=== PATIENT | male | born 1945 | race Caucasian/White ===

== ENCOUNTER 2024-06-07 14:16 | Emergency (ER) | payer OTHER ==
[~2024-06-07] VITALS: Ht 175.3 cm; Wt 80.6 kg
[2024-06-07 17:49] VITALS: BP 148/80
== END 2024-06-07 17:50 | disposition home or self-care (01) ==
LOC: ED 14:16
DX: J02.9 Acute pharyngitis, unspecified (principal); I11.0 Hypertensive heart disease with heart failure; I50.9 Heart failure, unspecified; J44.9 Chronic obstructive pulmonary disease, unspecified; I25.10 Atherosclerotic heart disease of native coronary artery without angina pectoris
CPT/HCPCS: 87651; 99283

== ENCOUNTER 2024-07-28 09:10 | Emergency (ER) | payer OTHER ==
[~2024-07-28] VITALS: Ht 175.3 cm; Wt 80.4 kg
[2024-07-28] MEDS ORDERED: FUROSEMIDE 40 MG/4 ML VIAL IV ONE (09:30)
[2024-07-28 09:39] LABS: BASOPHILS 1.3 % (0-2); HEMATOCRIT 44.6 % (35.0-50.0); HEMOGLOBIN 15.1 g/dL (12.0-18.0); LYMPHOCYTES 18.1 % (24-44); MCH 32.7 (27-36); MCHC 33.8 g/dl (30-36); MCV 96.6 fl (81-99); MONOCYTES 8.1 % (0-12); NEUTROPHILS 68.5 % (39-80); PLATELET COUNT 187 K/uL (140-440); RBC 4.61 M/ul (4.3-5.7); RDW 13.6 (10.5-15.0)
[2024-07-28 09:47] LABS: PARTIAL THROMBOPLASTIN TIME 28.5 Sec (22.9-41.3)
[2024-07-28 09:51] LABS: INR 1.15 (0.80-1.30)
[2024-07-28 09:58] LABS: ALBUMIN 3.2 g/dL (3.4-5.0); ALBUMIN/GLOBULIN RATIO 0.89 (1.1-2.4); BILIRUBIN, TOTAL 0.4 ng/dL (0.2-1.0); BUN/CREATININE RATIO 23.12 (6.0-28.6); CREATININE, SERUM 1.73 mg/dL (0.70-1.30); MAGNESIUM 2.1 mg/dL (1.8-2.4); PROTEIN, TOTAL 6.8 g/dL (6.4-8.2)
[2024-07-28 10:20] LABS: INFLUENZA B NAA NEGATIVE (NEGATIVE); RESPIRATORY SYNCYTIAL VIR NAA NEGATIVE (NEGATIVE)
[2024-07-28 12:21] VITALS: BP 150/84
--- NOTE | 2024-07-29 18:14 | EKG ---
[facility] [address] [facility] [place] [address] Signed Ventricular-paced rhythm Abnormal ECG No previous ECGs available Confirmed by Wellington Barrett MD ([id number]) on 07/29/2024 6:14:21 PM Electronically Signed By: WELLINGTON BARRETT MD 07/29/241813 PATIENT NAME: NBA OLSEN Electrocardiogram DATE OF : 43 PHYSICIAN: WELLINGTON BARRETT MD REPORT #: [id number] REPORT IS CONFIDENTIAL AND NOT TO BE RELEASED WITHOUT AUTHORIZATION
== END 2024-07-28 12:22 | disposition home or self-care (01) ==
LOC: ED 09:10
PROVIDERS: Emergency Medicine
DX: I11.0 Hypertensive heart disease with heart failure (principal); I50.9 Heart failure, unspecified; J44.9 Chronic obstructive pulmonary disease, unspecified; I48.91 Unspecified atrial fibrillation; I25.10 Atherosclerotic heart disease of native coronary artery without angina pectoris; Z85.46 Personal history of malignant neoplasm of prostate; Z95.0 Presence of cardiac pacemaker
CPT/HCPCS: 36415; 71045; 80053; 83735; 83880; 84484; 85025; 85379; 85610; 85730; 87502; 93005; 93010; 96374; 99285-25; J1940; U0002

== ENCOUNTER 2024-08-14 03:22 | Emergency (ER) | payer OTHER ==
[~2024-08-14] VITALS: Ht 175.3 cm; Wt 86.6 kg
[2024-08-14 03:55] LABS: BASOPHILS 0.5 % (0-2); EOSINOPHILS 3.5 % (0-6); HEMATOCRIT 40.3 % (35.0-50.0); HEMOGLOBIN 14.2 g/dL (12.0-18.0); MCH 33.8 (27-36); MCHC 35.2 g/dl (30-36); PLATELET COUNT 155 K/uL (140-440); RDW 13.7 (10.5-15.0)
[2024-08-14 04:10] LABS: ALBUMIN 3.4 g/dL (3.4-5.0); ALBUMIN/GLOBULIN RATIO 1.03 (1.1-2.4); ANION GAP 13.7 (7-21); BILIRUBIN, TOTAL 1.5 ng/dL (0.2-1.0); BUN/CREATININE RATIO 20.76 (6.0-28.6); CALCIUM 8.5 mg/dL (8.5-10.1); CREATININE, SERUM 1.83 mg/dL (0.70-1.30); POTASSIUM 3.7 mmol/L (3.5-5.1); PROTEIN, TOTAL 6.7 g/dL (6.4-8.2)
--- OUTSIDE RECORDS SUMMARY | 2024-08-14 04:54 | XMS ---
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 Sonia has no Care Guidelines for this patient. Nina VISIT COUNT (12 MO.) 3 [facility] J[address] TOTAL 4 NOTE: Visits indicate total known visits. ED/C VISIT TRACKING (12 MO.) [facility]24 [facility] [place] [facility] COMPLAINT: - DIFFICULTY BREATHING 07/28/2024 09:10 [facility] [place] TYPE: Emergency COMPLAINT: - SHORTNESS OF BREATH DIAGNOSES: - Atherosclerotic heart disease of [place] coronary artery without angina pectoris - Chronic obstructive pulmonary disease, unspecified - Heart failure, unspecified - Hypertensive heart disease with heart failure - Personal history of malignant neoplasm of prostate - Presence of cardiac pacemaker - Shortness of breath - Unspecified atrial fibrillation 06/07/2024 14:17 [facility] [place] TYPE: Emergency COMPLAINT: - SORE THROAT DIAGNOSES: - Acute pharyngitis, unspecified - Atherosclerotic heart disease of [place] coronary artery without angina pectoris - Chronic obstructive pulmonary disease, unspecified - Heart failure, unspecified - Hypertensive heart disease with heart failure 02/02/2024 07:22 [facility] TYPE: Emergency COMPLAINT: - CHEST PAIN DIAGNOSES: - Chronic obstructive pulmonary disease, unspecified - Heart failure, unspecified - Hypertensive heart disease with heart failure - terminal operations manager (current) use of anticoagulants - Other chest pain - Personal history of nicotine dependence - Presence of cardiac pacemaker - Unspecified atrial fibrillation - Ventricular premature depolarization INPATIENT VISIT TRACKING (12 MO.) 02/15/2024 21:40 [facility] TYPE: Inpatient COMPLAINT: - CHEST PAIN DIAGNOSES: - Acute kidney failure, unspecified - Chest pain, unspecified - Chronic obstructive pulmonary disease, unspecified - Elevated white blood cell count, unspecified - Essential (primary) hypertension - Malignant neoplasm of prostate - Presence of cardiac pacemaker - Unspecified atrial fibrillation - Unspecified diastolic (congestive) heart failure 08/23/2023 10:11 [facility] TYPE: Inpatient COMPLAINT: - SOB DIAGNOSES: - Acute on chronic diastolic (congestive) heart failure - Chronic atrial fibrillation, unspecified - Chronic obstructive pulmonary disease, unspecified - Contact with and (suspected) exposure to other hazardous, chiefly nonmedicinal, chemicals - Encounter for screening for COVID-19 - Essential (primary) hypertension - Heart failure, unspecified - Hypertensive heart disease with heart failure - [facility] (current) use of anticoagulants - Malignant neoplasm of prostate - Personal history of malignant neoplasm of prostate - Personal history of nicotine dependence - Presence of cardiac pacemaker - Psoriasis, unspecified - Pulmonary hypertension, unspecified - Unspecified atrial fibrillation [id number]
[2024-08-14] MEDS ORDERED: FUROSEMIDE 40 MG/4 ML VIAL IV ONE (06:00)
[2024-08-14 10:00] VITALS: BP 132/79
[2024-08-14] MEDS ORDERED: K-TAB ER20 MEQ PO (10:21)
[2024-08-14] MEDS ORDERED: FUROSEMIDE 40 MG TAB PO ONE (10:30)
[2024-08-14] MEDS ORDERED: POTASSIUM CHLORIDE 10 MEQ TABCR PO ONE (10:30)
--- NOTE | 2024-08-14 19:28 | EKG ---
[facility] [address] [place] [address] Signed Ventricular-paced rhythm with frequent premature ventricular complexes Abnormal ECG When compared with ECG of 28-JUL-2024 09:36, premature ventricular complexes are now present Vent. rate has increased BY 4 BPM Confirmed by Saman Barrett MD ([id number]) on 08/14/2024 7:28:37 PM Electronically Signed By: SAMAN BARRETT MD 08/14/24 1928 PATIENT NAME: NBA OLSEN SONAM Electrocardiogram DATE OF : 43 PHYSICIAN: SAMAN BARRETT MD REPORT #: [id number] REPORT IS CONFIDENTIAL AND NOT TO BE RELEASED WITHOUT AUTHORIZATION
== END 2024-08-14 10:43 | disposition home or self-care (01) ==
LOC: ED 03:22
PROVIDERS: Family Medicine
DX: I11.0 Hypertensive heart disease with heart failure (principal); I50.9 Heart failure, unspecified; J44.9 Chronic obstructive pulmonary disease, unspecified; I48.91 Unspecified atrial fibrillation; I25.10 Atherosclerotic heart disease of native coronary artery without angina pectoris; Z95.0 Presence of cardiac pacemaker; Z85.46 Personal history of malignant neoplasm of prostate; Z79.01 Long term (current) use of anticoagulants; Z79.899 Other long term (current) drug therapy
CPT/HCPCS: 36415; 71045; 80053; 83735; 83880; 84484; 85025; 93005; 93010; 96374; 99285-25; A9270; J1940

== ENCOUNTER 2024-12-30 08:12 | Emergency (ER) | payer OTHER ==
[~2024-12-30] VITALS: Ht 175.3 cm; Wt 87.1 kg
[~2024-12-30 08:12] MED LIST: K-TAB ER20 MEQ PO
[2024-12-30] MEDS ORDERED: FUROSEMIDE40 MG PO (08:26)
[2024-12-30] MEDS ORDERED: TOPROL XL50 MG PO (08:27)
[2024-12-30] MEDS ORDERED: ELIQUIS5 MG PO (08:27)
[2024-12-30 09:00] LABS: BILIRUBIN, URINE NEGATIVE (negative); BLOOD/HGB, URINE NEGATIVE (Negative); KETONE, URINE NEGATIVE (Negative); LEUK ESTERASE, URINE NEGATIVE (negative); NITRITE, URINE NEGATIVE (negative); PH, URINE 6.5 (5-7)
[2024-12-30] MEDS ORDERED: CEPHALEXIN MONOHYDRATE 500 MG CAP PO ONE (09:00)
[2024-12-30 09:28] LABS: BACTERIA, URINE NONE SEEN /hpf (negative); CASTS, URINE NONE SEEN \\lpf; COLLECTION TYPE, URINE CLEAN CATCH; CRYSTALS, URINE NONE SEEN (0-1+); EPITHELIAL CELLS, URINE 0 /lpf (0-1+); RED BLOOD CELLS, URINE 0-1 /hpf (0-5); REFLEX CULTURE, URINE No (No); WHITE BLOOD CELLS, URINE 0-1 /HPF (0-5)
[2024-12-30] MEDS ORDERED: CEPHALEXIN500 M1 PO (09:40)
[2024-12-30 09:47] VITALS: BP 113/67
[2024-12-30 10:37] LABS: N. GONORRRHOEAE BY PCR NOT DETECTED (NOT DETECT)
[2024-12-31 12:54] LABS: RAPID PLASMA REAGIN (RPR) Non Reactive (Non Reactive)
[2024-12-31] MEDS ORDERED: BACTRIM DS TAB1 EACH PO ×2 (19:02→20:45)
== END 2024-12-30 09:48 | disposition home or self-care (01) ==
LOC: ED 08:12
PROVIDERS: Emergency Medicine
DX: L03.317 Cellulitis of buttock (principal); N48.22 Cellulitis of corpus cavernosum and penis; L40.0 Psoriasis vulgaris; J44.9 Chronic obstructive pulmonary disease, unspecified; I11.0 Hypertensive heart disease with heart failure; I50.9 Heart failure, unspecified; Z79.899 Other long term (current) drug therapy
CPT/HCPCS: 36415; 81001; 87205; 99283; A9270

== ENCOUNTER 2025-02-01 15:17 | Emergency (ER) | payer OTHER ==
[~2025-02-01] VITALS: Ht 175.3 cm; Wt 87.1 kg
[~2025-02-01 15:17] MED LIST changes: +BACTRIM DS TAB1 EACH PO; +CEPHALEXIN500 M1 PO; +ELIQUIS5 MG PO; +FUROSEMIDE40 MG PO; +TOPROL XL50 MG PO
[2025-02-01 18:11] VITALS: BP 176/95
== END 2025-02-01 18:11 | disposition home or self-care (01) ==
LOC: ED 15:17
DX: N49.2 Inflammatory disorders of scrotum (principal); I48.91 Unspecified atrial fibrillation; I11.0 Hypertensive heart disease with heart failure; I50.9 Heart failure, unspecified; Z79.899 Other long term (current) drug therapy
CPT/HCPCS: 99282

== ENCOUNTER 2025-02-14 19:12 | Emergency (ER) | payer OTHER ==
[~2025-02-14] VITALS: Ht 175.3 cm; Wt 87.1 kg
--- OUTSIDE RECORDS SUMMARY | 2025-02-14 19:19 | XMS ---
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 Sonia has no Care Guidelines for this patient. Nina VISIT COUNT (12 MO.) 7 [facility] TOTAL 7 NOTE: Visits indicate total known visits. ED/C VISIT TRACKING (12 MO.) [facility]25 [facility] [place] [facility] COMPLAINT: - CHEST PAIN 02/01/2025 15:18 [facility] [place] TYPE: Emergency COMPLAINT: - SKIN ISSUE DIAGNOSES: - Heart failure, unspecified - Hypertensive heart disease with heart failure - Inflammatory disorders of scrotum - Local infection of the skin and subcutaneous tissue, unspecified - Other integration director (current) drug therapy - Unspecified atrial fibrillation 12/31/2024 15:31 [facility] [address] [place] TYPE: Emergency COMPLAINT: - GROIN PAIN DIAGNOSES: - Cellulitis of buttock - Cellulitis of corpus cavernosum and penis - Chronic obstructive pulmonary disease, unspecified - Heart failure, unspecified - Hypertensive heart disease with heart failure - Inflammatory disorders of scrotum - Other group home (current) drug therapy - Other specified disorders of penis - Unspecified atrial fibrillation 12/30/2024 08:13 [facility] [address] [place] TYPE: Emergency COMPLAINT: - URINARY PROBLEM DIAGNOSES: - Cellulitis of buttock - Cellulitis of corpus cavernosum and penis - Chronic obstructive pulmonary disease, unspecified - Heart failure, unspecified - Hypertensive heart disease with heart failure - Other group home (current) drug therapy - Pelvic and perineal pain - Psoriasis vulgaris 08/14/2024 03:23 [facility] [place] TYPE: Emergency COMPLAINT: - DIFFICULTY BREATHING DIAGNOSES: - Atherosclerotic heart disease of [place] coronary artery without angina pectoris - Chronic obstructive pulmonary disease, unspecified - Heart failure, unspecified - Hypertensive heart disease with heart failure - group home (current) use of anticoagulants - Other integration director (current) drug therapy - Personal history of malignant neoplasm of prostate - Presence of cardiac pacemaker - Shortness of breath - Unspecified atrial fibrillation 07/28/2024 09:10 [facility] [place] TYPE: Emergency COMPLAINT: - SHORTNESS OF BREATH DIAGNOSES: - Atherosclerotic heart disease of [place] coronary artery without angina pectoris - Chronic obstructive pulmonary disease, unspecified - Heart failure, unspecified - Hypertensive heart disease with heart failure - Personal history of malignant neoplasm of prostate - Presence of cardiac pacemaker - Shortness of breath - Unspecified atrial fibrillation 06/07/2024 14:17 [facility] [place] TYPE: Emergency COMPLAINT: - SORE THROAT DIAGNOSES: - Acute pharyngitis, unspecified - Atherosclerotic heart disease of [place] coronary artery without angina pectoris - Chronic obstructive pulmonary disease, unspecified - Heart failure, unspecified - Hypertensive heart disease with heart failure INPATIENT VISIT TRACKING (12 MO.) 02/15/2024 21:40 [facility] TYPE: Inpatient COMPLAINT: - CHEST PAIN DIAGNOSES: - Acute kidney failure, unspecified - Chest pain, unspecified - Chronic obstructive pulmonary disease, unspecified - Elevated white blood cell count, unspecified - Essential (primary) hypertension - Malignant neoplasm of prostate - Presence of cardiac pacemaker - Unspecified atrial fibrillation - Unspecified diastolic (congestive) heart failure [id number]
[2025-02-14 19:25] LABS: BASOPHILS 0.7 % (0.2-1.2); EOSINOPHILS 2.6 % (0.8-7.0); LYMPHOCYTES 14.1 % (21.8-53.1); MCH 33.0 PG (25.7-32.2); MCHC 33.5 g/dL (32.3-36.5); MCV 98.6 fL (79.0-92.2); MONOCYTES 8.2 % (5.3-12.2); NEUTROPHILS 74.1 % (34.0-67.9); RBC 4.33 M/uL (4.63-6.08)
[2025-02-14] MEDS ORDERED: CLONIDINE HCL0.1 M1 PO (19:29)
[2025-02-14] MEDS ORDERED: ASPIRIN 81 MG CHEW PO ONE (19:30)
[2025-02-14] MEDS ORDERED: NITROGLYCERIN 0.4 MG SUBL SL PRN (19:30)
[2025-02-14 19:35] LABS: INR 1.14 (0.80-1.30); PROTIME 13.8 Sec (11.2-14.2)
[2025-02-14 19:52] LABS: ALT (SGPT) 23.0 U/L (14-59); AST (SGOT) 26.0 U/L (15-37); GLOMERULAR FILTRATION RATE,EST 37.0 mL/min (>60); PROTEIN, TOTAL 7.5 g/dL (6.4-8.2); UREA NITROGEN 28.0 mg/dL (7-18)
[2025-02-14] MEDS ORDERED: FUROSEMIDE 40 MG/4 ML VIAL IV ONE (23:15)
[2025-02-15 05:10] VITALS: BP 173/99
--- NOTE | 2025-02-15 21:46 | EKG ---
[facility] [address] [place] [address] Signed Ventricular-paced rhythm with occasional premature ventricular complexes Abnormal ECG When compared with ECG of 14-AUG-2024 03:47, Vent. rate has increased BY 9 BPM Confirmed by Maddie Meier MD () on 02/15/2025 9:45:51 PM Electronically Signed By: MADDIE MEIER MD 02/15/25 2146 PATIENT NAME: RAÚLNBA Electrocardiogram DATE OF : 43 PHYSICIAN: MADDIE MEIER MD REPORT #: [id number] REPORT IS CONFIDENTIAL AND NOT TO BE RELEASED WITHOUT AUTHORIZATION
== END 2025-02-15 05:10 | disposition home or self-care (01) ==
LOC: ED 19:12
PROVIDERS: Internal Medicine
DX: I11.0 Hypertensive heart disease with heart failure (principal); I50.9 Heart failure, unspecified; H81.10 Benign paroxysmal vertigo, unspecified ear; J44.9 Chronic obstructive pulmonary disease, unspecified; I48.91 Unspecified atrial fibrillation; Z79.899 Other long term (current) drug therapy
CPT/HCPCS: 36415; 70450; 70496; 70498; 71045; 80053; 83735; 83880; 84484; 85025; 85610; 93005; 93010; 99285-25; A9270; J1938; Q9967

== ENCOUNTER 2025-02-17 03:58 | Emergency (ER) | payer OTHER ==
[~2025-02-17] VITALS: Ht 175.3 cm; Wt 80.4 kg
[~2025-02-17 03:58] MED LIST changes: +CLONIDINE HCL0.1 M1 PO
--- OUTSIDE RECORDS SUMMARY | 2025-02-17 04:05 | XMS ---
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 Sonia has no Care Guidelines for this patient. Nina VISIT COUNT (12 MO.) 8 [facility] NOTE: Visits indicate total known visits. ED/C VISIT TRACKING (12 MO.) 02/17/2025 03:59 [facility] [place] TYPE: Emergency COMPLAINT: - DIZZINESS 02/14/2025 19:12 [facility] [place] TYPE: Emergency COMPLAINT: - CHEST PAIN 02/01/2025 15:18 [facility] [place] TYPE: Emergency COMPLAINT: - SKIN ISSUE DIAGNOSES: - Heart failure, unspecified - Hypertensive heart disease with heart failure - Inflammatory disorders of scrotum - Local infection of the skin and subcutaneous tissue, unspecified - Other buttermaker continuous churn (current) drug therapy - Unspecified atrial fibrillation 12/31/2024 15:31 [facility] [place] TYPE: Emergency COMPLAINT: - GROIN PAIN DIAGNOSES: - Cellulitis of buttock - Cellulitis of corpus cavernosum and penis - Chronic obstructive pulmonary disease, unspecified - Heart failure, unspecified - Hypertensive heart disease with heart failure - Inflammatory disorders of scrotum - Other prison (current) drug therapy - Other specified disorders of penis - Unspecified atrial fibrillation 12/30/2024 08:13 [facility] [place] TYPE: Emergency COMPLAINT: - URINARY PROBLEM DIAGNOSES: - Cellulitis of buttock - Cellulitis of corpus cavernosum and penis - Chronic obstructive pulmonary disease, unspecified - Heart failure, unspecified - Hypertensive heart disease with heart failure - Other buttermaker continuous churn (current) drug therapy - Pelvic and perineal pain - Psoriasis vulgaris 08/14/2024 03:23 [facility] [place] TYPE: Emergency COMPLAINT: - DIFFICULTY BREATHING DIAGNOSES: - Atherosclerotic heart disease of [place] coronary artery without angina pectoris - Chronic obstructive pulmonary disease, unspecified - Heart failure, unspecified - Hypertensive heart disease with heart failure - intermediate manager (current) use of anticoagulants - Other prison (current) drug therapy - Personal history of malignant neoplasm of prostate - Presence of cardiac pacemaker - Shortness of breath - Unspecified atrial fibrillation 07/28/2024 09:10 [facility] [place] TYPE: Emergency COMPLAINT: - SHORTNESS OF BREATH DIAGNOSES: - Atherosclerotic heart disease of [place] coronary artery without angina pectoris - Chronic [...] pharyngitis, unspecified - Atherosclerotic heart disease of [place] coronary artery without angina pectoris - Chronic obstructive pulmonary disease, unspecified - Heart failure, unspecified - Hypertensive heart disease with heart failure INPATIENT VISIT TRACKING (12 MO.) No inpatient visits to display in this time frame [email or web address]
[2025-02-17] MEDS ORDERED: ENALAPRILAT DIHYDRATE 1.25 MG/ML VIAL IV ONE (04:30)
[2025-02-17 04:35] LABS: BASOPHILS 0.9 % (0.2-1.2); EOSINOPHILS 4.7 % (0.8-7.0); LYMPHOCYTES 20.2 % (21.8-53.1); MCH 33.0 PG (25.7-32.2); MCHC 33.9 g/dL (32.3-36.5); MCV 97.1 fL (79.0-92.2); MONOCYTES 9.2 % (5.3-12.2); NEUTROPHILS 64.7 % (34.0-67.9); RBC 4.46 M/uL (4.63-6.08)
[2025-02-17 05:02] LABS: ALT (SGPT) 28.0 U/L (14-59); AST (SGOT) 25.0 U/L (15-37); GLOMERULAR FILTRATION RATE,EST 45.0 mL/min (>60); PROTEIN, TOTAL 7.0 g/dL (6.4-8.2); TSH, 3RD GENERATION 1.161 uIU/mL (0.358-3.740); UREA NITROGEN 34.0 mg/dL (7-18)
[2025-02-17] MEDS ORDERED: MECLIZINE HCL25 MG PO (06:04)
[2025-02-17] MEDS ORDERED: MECLIZINE HCL 25 MG TAB PO ONE (06:15)
[2025-02-17] MEDS ORDERED: ALBUTEROL SULFATE 0.083% 3 ML VIAL INH ONE (06:15)
[2025-02-17] MEDS ORDERED: methylPREDNISolone 4 MG HOME.PACK PO ONE (06:15)
[2025-02-17 06:51] VITALS: BP 143/105
== END 2025-02-17 06:53 | disposition home or self-care (01) ==
LOC: ED 03:58
PROVIDERS: Family Medicine
DX: H81.10 Benign paroxysmal vertigo, unspecified ear (principal); I11.0 Hypertensive heart disease with heart failure; I50.9 Heart failure, unspecified; J44.9 Chronic obstructive pulmonary disease, unspecified; I48.91 Unspecified atrial fibrillation; I25.10 Atherosclerotic heart disease of native coronary artery without angina pectoris; Z95.0 Presence of cardiac pacemaker; Z79.01 Long term (current) use of anticoagulants; Z79.899 Other long term (current) drug therapy
CPT/HCPCS: 36415; 71260; 80053; 83735; 84443; 84484; 85025; 94640; 99284-25; A9270; Q9967

== ENCOUNTER 2025-07-03 11:19 | Emergency (ER) | payer OTHER ==
[~2025-07-03] VITALS: Ht 175.3 cm; Wt 88.7 kg
[~2025-07-03 11:19] MED LIST changes: +MECLIZINE HCL25 MG PO
[2025-07-03 11:47] LABS: BASOPHILS 0.9 % (0.2-1.2); EOSINOPHILS 1.4 % (0.8-7.0); LYMPHOCYTES 16.2 % (21.8-53.1); MCH 32.7 PG (25.7-32.2); MCHC 34.3 g/dL (32.3-36.5); MCV 95.3 fL (79.0-92.2); MONOCYTES 8.7 % (5.3-12.2); NEUTROPHILS 72.4 % (34.0-67.9); RBC 5.93 M/uL (4.63-6.08)
[2025-07-03 11:57] LABS: ALT (SGPT) 23.0 U/L (14-59); AST (SGOT) 17.0 U/L (15-37); GLOMERULAR FILTRATION RATE,EST 40.0 mL/min (>60); PROTEIN, TOTAL 7.7 g/dL (6.4-8.2); UREA NITROGEN 34.0 mg/dL (7-18)
[2025-07-03] MEDS ORDERED: SODIUM CHLORIDE 0.9% 1,000 ML IV PRN (12:30)
[2025-07-03 14:35] VITALS: BP 157/98
== END 2025-07-03 14:07 | disposition home or self-care (01) ==
LOC: ED 11:19
PROVIDERS: Emergency Medicine
DX: I11.0 Hypertensive heart disease with heart failure (principal); I50.9 Heart failure, unspecified; J44.9 Chronic obstructive pulmonary disease, unspecified; Z79.899 Other long term (current) drug therapy
CPT/HCPCS: 36415; 80053; 85025; 99283; J7030

== ENCOUNTER 2025-07-06 12:01 | Emergency (ER) | payer OTHER ==
[~2025-07-06] VITALS: Ht 175.3 cm; Wt 90.3 kg
--- OUTSIDE RECORDS SUMMARY | ~2025-07-06 | XMS | Continuity of Care Document ---
Demographics + + + | Address | [address] | | | [place] [address] | + + + | Preferred Language | Unknown | + + + | Marital Status | | + + + | Quaker Affiliation | Unknown | + + + | Race | White | + + + | Ethnic Group | Not or | + + + Author + + + | Author | [facility] | + + + | Organization | [facility] | + + + | Address | [address] | | | [place] [address] | + + + | Phone | | + + + Care Team Providers + + + + | Care Tv News Director Name | Role | Phone | + + + + Unavailable | Unavailable | + + + + Unavailable | Unavailable | + + + + Allergies No information. Encounters No information. Functional Status No information. Immunizations No information. Medications + + + + | date | description | facility | + + + + | (no date) | CLONIDINE HCL | [facility] | | | | [facility] | + + + + | (no date) | APIXABAN | [facility] | | | | [facility] | + + + + | (no date) | FUROSEMIDE | [facility] | | | | [facility] | + + + + | (no date) | METOPROLOL SUCCINATE | [facility] | | | | [facility] | + + + + Problems + + + + | date | description | facility | + + + + | 2025-07-03 00:00 | Hypertension | [facility] | | | | [facility] | + + + + Procedures [...] | (missing) | (missing) | | Ser[facility] | 11:33:08 | [facility] | | [...] 3.9 | (missing) | (missing) | | Ser-[facility] | 11:33:08 | [facility] | | | [...]
--- OUTSIDE RECORDS SUMMARY | 2025-07-06 12:07 | XMS ---
PreManage Notification: NBA OLSEN Security Rn Lab Events No recent Security Events currently on file CRITERIA MET - [facility] - 2 Visits in 30 Days CARE PROVIDERS There are no care providers on record at this time. Sonia has no Care Guidelines for this patient. Nina VISIT COUNT (12 MO.) [facility] T[facility] NOTE: Visits indicate total known visits. ED/C VISIT TRACKING (12 MO.) 07/06/2025 12:[address] [facility] [place]: Emergency COMPLAINT: - MEDICATION REFILL 07/03/2025 11:19 [facility]angel[facility] Ring[facility]em[facility] [place] TYPE: Emergency COMPLAINT: - BLOOD PRESSURE PROBLEM DIAGNOSES: - Chronic obstructive pulmonary disease, unspecified - Essential (primary) hypertension - Heart failure, unspecified - Hypertensive heart disease with heart failure - Other laborer marine terminal (current) drug therapy 02/17/2025 03:59 [facility] [place] TYPE: Emergency COMPLAINT: - DIZZINESS DIAGNOSES: - Atherosclerotic heart disease of [place] coronary artery without angina pectoris - Benign paroxysmal vertigo, unspecified ear - Chronic obstructive pulmonary disease, unspecified - Dizziness and giddiness - Heart failure, unspecified - Hypertensive heart disease with heart failure - intermodal dispatcher (current) use of anticoagulants - Other laborer marine terminal (current) drug therapy - Presence of cardiac pacemaker - Unspecified atrial fibrillation 02/14/2025 19:12 [facility] [place] TYPE: Emergency COMPLAINT: - CHEST PAIN DIAGNOSES: - Benign paroxysmal vertigo, unspecified ear - Chronic obstructive pulmonary disease, unspecified - Dizziness and giddiness - Heart failure, unspecified - Hypertensive heart disease with heart failure - Other laborer marine terminal (current) drug therapy - Unspecified atrial fibrillation 02/01/2025 15:[address] [facility] [place] [facility] [place] TYPE: Emergency COMPLAINT: - SKIN ISSUE DIAGNOSES: - Heart failure, unspecified - Hypertensive heart disease with heart failure - Inflammatory disorders of scrotum - Local infection of the skin and subcutaneous tissue, unspecified - Other laborer marine terminal (current) drug therapy - Unspecified atrial fibrillation 12/31/2024 15:[address] [facility] [place]na [place] TYPE: Emergency COMPLAINT: - GROIN PAIN DIAGNOSES: - Cellulitis of buttock - Cellulitis of corpus cavernosum and penis - Chronic obstructive pulmonary disease, unspecified - Heart failure, unspecified - Hypertensive heart disease with heart failure - Inflammatory disorders of scrotum - Other laborer marine terminal (current) drug therapy - Other specified disorders of penis - Unspecified atrial fibrillation 12/30/2024 08:[address] [facility] [place] JhonathanHemant [place] TYPE: Emergency COMPLAINT: - URINARY PROBLEM DIAGNOSES: - Cellulitis of buttock - Cellulitis of corpus cavernosum and penis - Chronic obstructive pulmonary disease, unspecified - Heart failure, unspecified - Hypertensive heart disease with heart failure - Other laborer marine terminal (current) drug therapy - Pelvic and perineal pain - Psoriasis vulgaris 08/14/2024 03:23 [facility] [place] TYPE: Emergency COMPLAINT: - DIFFICULTY BREATHING DIAGNOSES: - Atherosclerotic heart disease of [place] coronary artery without angina pectoris - Chronic obstructive pulmonary disease, unspecified - Heart failure, unspecified - Hypertensive heart disease with heart failure - long-term (current) use of anticoagulants - Other laborer marine terminal (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) drug therapy - Personal history of malignant neoplasm of prostate - Presence of cardiac pacemaker - Shortness of breath - Unspecified atrial fibrillation 07/28/2024 09:10 [facility] [place] TYPE: Emergency COMPLAINT: - SHORTNESS OF BREATH DIAGNOSES: - Atherosclerotic heart disease of [place] coronary artery without angina pectoris - Chronic obstructive pulmonary disease, unspecified - Heart failure, unspecified - Hypertensive heart disease with heart failure - Personal history of malignant neoplasm of prostate - Presence of cardiac pacemaker - Shortness of breath - Unspecified atrial fibrillation INPATIENT VISIT TRACKING (12 MO.) No inpatient visits to display in this time frame [id number]
[2025-07-06 12:55] VITALS: BP 00/00
[2025-07-06] MEDS ORDERED: LASIX40 MG PO (13:05)
[2025-07-06] MEDS ORDERED: FUROSEMIDE40 MG PO (13:16)
[2025-07-06] MEDS ORDERED: METOLAZONE5 MG PO (23:12)
== END 2025-07-06 12:55 | disposition home or self-care (01) ==
LOC: ED 12:01
DX: I10 Essential (primary) hypertension (principal); Z76.0 Encounter for issue of repeat prescription; I11.0 Hypertensive heart disease with heart failure; I50.9 Heart failure, unspecified; J44.9 Chronic obstructive pulmonary disease, unspecified; Z79.899 Other long term (current) drug therapy
CPT/HCPCS: 99281

== ENCOUNTER 2025-07-06 20:16 | Emergency (ER) | payer OTHER ==
[~2025-07-06] VITALS: Ht 175.3 cm; Wt 90.3 kg
--- NOTE | ~2025-07-06 | EKG ---
[facility] [address] [facility] [place], [place] [address] Draft EK completed, results pending confirmation PATIENT NAME: WINGABBYNBA Electrocardiogram DATE OF : 43 PHYSICIAN: PRELIMINARY REPORT #: [id number] REPORT IS CONFIDENTIAL AND NOT TO BE RELEASED WITHOUT AUTHORIZATION
--- OUTSIDE RECORDS SUMMARY | ~2025-07-06 | XMS | Continuity of Care Document ---
Demographics + + + | Address | [address] | | | [place] [address] | + + + | Preferred Language | Unknown | + + + | Marital Status | | + + + | Judaism Affiliation | Unknown | + + + | Race | White | + + + | Ethnic Group | Not or | + + + Author + + + | Author | [facility] | + + + | Organization | [facility] | + + + | Address | [address] | | | [place] [address] | + + + | Phone | | + + + Care Team Providers + + + + | Care Patternmaker Sample Name | Role | Phone | + + + + Unavailable | Unavailable | + + + + Unavailable | Unavailable | + + + + Allergies No information. Encounters No information. Functional Status No information. Immunizations No information. Medications + + + + | date | description | facility | + + + + | (no date) | CLONIDINE HCL | [facility] | | | | [facility] | + + + + | (no date) | APIXABAN | [facility] | | | | [facility] | + + + + | (no date) | FUROSEMIDE | [facility] | | | | [facility] | + + + + | (no date) | METOPROLOL SUCCINATE | [facility] | | | | [facility] | + + + + Problems + + + + | date | description | facility | + + + + | 2025-07-03 00:00 | Hypertension | [facility] | | | | [facility] | + + + + Procedures No information. Results/Labs +--------+--------+ +---------+--------+---------+ | test | date | facility | value | unit | notes | +--------+--------+ +---------+--------+---------+ + + | Result panel 1 | + + + + + +---------+ + + | WBC # Bld | 2025-07-03 | | 12.12 | (missing) | (missing) | | Auto | 11:33:08 | [facility] | | | + + + +---------+ + + + + | Result panel 2 | + + + + + +--------+ + + | Lymphocytes | 2025-07-03 | | 16.2 | (missing) | (missing) | | NFr Bld | 11:33:08 | [facility] | | | | | Auto | [facility] | | | | + + + +--------+ + + + + | Result panel 3 | + + + + + +-------+ + + | Monocytes | 2025-07-03 | | 8.7 | (missing) | (missing) | | NFr Bld Auto | 11:33:08 | [facility] | | | | + + + +-------+ + + + + | Result panel 4 | + + + + + +-------+ + + | Eosinophil | 2025-07-03 | | 1.4 | (missing) | (missing) | | NFr Bld Auto | 11:33:08 | [facility] | | | | + + + +-------+ + + + + | Result panel 5 | + + + + + +-------+ + + | Basophils | 2025-07-03 | | 0.9 | (missing) | (missing) | | NFr Bld Auto | 11:33:08 | [facility] | | | | + + + +-------+ + + + + | Result panel 6 | + + + + + +-------+---------+ + | Glucose | 2025-07-03 | | 131 | mg/dL | (missing) | | SerPl-mCnc | 11:33:08 | [facility] | | | | + + + +-------+---------+ + + + | Result panel 7 | + + + + + +------+---------+ + | BUN | 2025-07-03 | | 34 | mg/dL | (missing) | | SerPl-mCnc | 11:33:08 | [facility] | | | | + + + +------+---------+ + + + | Result panel 8 | + + + + + +--------+---------+ + | Creat | 2025-07-03 | | 1.69 | mg/dL | (missing) | | SerPl-mCnc | 11:33:08 | [facility] | | | | + + + +--------+---------+ + + + | Result panel 9 | + + + + + +------+ + + | eGFRcr | 2025-07-03 | | 40 | (missing) | (missing) | | SerPlBld | 11:33:08 | [facility] | | | | | CKD-EPI 2020 | [facility] | | | | + + + +------+ + + + + | Result panel 10 | + + + + + +---------+ + + | BUN/Creat | 2025-07-03 | | 20.11 | (missing) | (missing) | | SerPl | 11:33:08 | [facility] | | | | + + + +---------+ + + + + | Result panel 11 | + + + + + +-------+ + + | Sodium | 2025-07-03 | | 140 | (missing) | (missing) | | SerPl-[facility] | 11:33:08 | [facility] | | [facility] | | | | + + + +-------+ + + + + | Result panel 12 | + + + + + +--------+ + + | RBC # Bld | 2025-07-03 | | 5.93 | (missing) | (missing) | | Auto | 11:33:08 | [facility] | | | | + + + +--------+ + + + + | Result panel 13 | + + + + + +-------+ + + | Potassium | 2025-07-03 | | 4.0 | (missing) | (missing) | | SerPl-sCnc | :33:08 | [facility] | | | | + + + +-------+ + + + + | Result panel 14 | + + + + + +-------+ + + | Chloride | 2025-07-03 | | 100 | (missing) | (missing) | | SerPl-sCnc | 11:33:08 | [facility] | | | | + + + +-------+ + + + + | Result panel 15 | + + + + + +------+ + + | CO2 | 2025-07-03 | | 29 | (missing) | (missing) | | SerPl-sCnc | 11:33:08 | [facility] | | | | + + + +------+ + + + + | Result panel 16 | + + + + + +--------+ + + | Anion Gap | 2025-07-03 | | 15.0 | (missing) | (missing) | | SerPl | 11:33:08 | [facility] | | | | | Calculated.4 | [facility] | [facility] | | | | + + + +--------+ + + + + | Result panel 17 | + + + + + +-------+---------+ + | Calcium | 2025-07-03 | | 9.1 | mg/dL | (missing) | | SerPl-mCnc | 11:33:08 | [facility] | | | | + + + +-------+---------+ + + + | Result panel 18 | + + + + + +-------+ + + | Prot | 2025-07-03 | | 7.7 | (missing) | (missing) | | Rupesh-Chani | 11:33:08 | [facility] | | | | + + + +-------+ + + + + | Result panel 19 | + + + + + +-------+ + + | Albumin | 2025-07-03 | | 3.8 | (missing) | (missing) | | SerPl-Chani | 11:33:08 | [facility] | | | | + + + +-------+ + + + + | Result panel 20 | + + + + + +-------+ + + | Globulin | 2025-07-03 | | 3.9 | (missing) | (missing) | | Ser-[facility] | 11:33:08 | [facility] | | [facility] | | | | + + + +-------+ + + + + | Result panel 21 | + + + + + +--------+ + + | | 2025-07-03 | | 0.97 | (missing) | (missing) | | Albumin/Glob | 11:33:08 | [facility] | | | | | [facility] | | | | + + + +--------+ + + + + | Result panel 22 | + + + + + +-------+---------+ + | Bilirub | 2025-07-03 | | 0.8 | mg/dL | (missing) | | SerPl-mCnc | 11:33:08 | [facility] | | | | + + + +-------+---------+ + + + | Result panel 23 | + + + + + +--------+ + + | Hgb | 2025-07-03 | | 19.4 | (missing) | (missing) | | Bld-mCnc | 11:33:08 | [facility] | | | | + + + +--------+ + + + + | Result panel 24 | + + + + + +------+ + + | AST | 2025-07-03 | | 17 | (missing) | (missing) | | SerPl-cCnc | 11:33:08 | [facility] | | | | + + + +------+ + + + + | Result panel 25 | + + + + + +------+ + + | ALT | 2025-07-03 | | 23 | (missing) | (missing) | | SerPl-cCnc | 11:33:08 | [facility] | | | | + + + +------+ + + + + | Result panel 26 | + + + + + +------+ + + | ALP | 2025-07-03 | | 66 | (missing) | (missing) | | SerPl-cCnc | 11:33:08 | [facility] | | | | + + + +------+ + + + + | Result panel 27 | + + + + + +--------+ + + | Hct VFr.DF | 2025-07-03 | | 56.5 | (missing) | (missing) | | Bld Auto | 11:33:08 | [facility] | | | | + + + +--------+ + + + + | Result panel 28 | + + + + + +--------+ + + | RBC Auto | 2025-07-03 | | 95.3 | (missing) | (missing) | | | 11:33:08 | [facility] | | | | + + + +--------+ + + + + | Result panel 29 | + + + + + +--------+ + + | MCH RBC Qn | 2025-07-03 | | 32.7 | (missing) | (missing) | | Auto | 11:33:08 | [facility] | | | | + + + +--------+ + + + + | Result panel 30 | + + + + + +--------+ + + | MCHC RBC | 2025-07-03 | | 34.3 | (missing) | (missing) | | Auto-EntMCnc | :33:08 | [facility] | | | | + + + +--------+ + + + + | Result panel 31 | + + + + + +-------+ + + | Platelet # | 2025-07-03 | | 261 | (missing) | (missing) | | Bld Auto | 11:33:08 | [facility] | | | | + + + +-------+ + + + + | Result panel 32 | + + + + + +--------+ + + | Neutrophils | 2025-07-03 | | 72.4 | (missing) | (missing) | | NFr Nayand | 11:33:08 | [facility] | | | | | Auto | [facility] | | | | + + + +--------+ + + Social History + + + + | date | description | facility | + + + + | (no date) | Unknown if ever smoked | [facility] | | | [facility] | + + + + Vital Signs + + + +---------+ | date | measurement | value | units | + + + +---------+ | 2025-07-03 00:00 | BMI | 28.9 | kg/m2 | + + + +---------+ | 2025-07-03 00:00 | BP_diastolic | 99 | mmHg | + + + +---------+ | 2025-07-03 00:00 | BP_systolic | 161 | mmHg | + + + +---------+ | 2025-07-03 00:00 | heart_rate | 60 | /min | + + + +---------+ | 2025-07-03 00:00 | height_metric | 175.26 | cm | + + + +---------+ | 2025-07-03 00:00 | height_standard | 69 | in | + + + +---------+ | 2025-07-03 00:00 | o2_saturation | 98 | % | + + + +---------+ | 2025-07-03 00:00 | respiration_rate | 15 | /min | + + + +---------+ | 2025-07-03 00:00 | | 97.1 | F | | | temperature_standar | | | | | d | | | + + + +---------+ | 2025-07-03 00:00 | weight_metric | 88.7 | kg | + + + +---------+ | 2025-07-03 00:00 | weight_standard | 195.550 | lb | + + + +---------+"
[~2025-07-06 20:16] MED LIST changes: +LASIX40 MG PO
--- OUTSIDE RECORDS SUMMARY | 2025-07-06 20:23 | XMS ---
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 Sonia has no Care Guidelines for this patient. Nina VISIT COUNT (12 MO.) 10 [facility] NOTE: Visits indicate total known visits. ED/UCC VISIT TRACKING (12 MO.) 07/06/2025 20:17 [facility] [place]: Emergency COMPLAINT: - EDEMA 07/06/2025 12:01 [facility] [place] TYPE: Emergency COMPLAINT: - MEDICATION REFILL 07/03/2025 11:19 [facility] [place] TYPE: Emergency COMPLAINT: - BLOOD PRESSURE PROBLEM DIAGNOSES: - Chronic obstructive pulmonary disease, unspecified - Essential (primary) hypertension - Heart failure, unspecified - Hypertensive heart disease with heart failure - Other alf (current) drug therapy 02/17/2025 03:59 [facility] [place] TYPE: Emergency COMPLAINT: - DIZZINESS DIAGNOSES: - Atherosclerotic heart disease of [place] coronary artery without angina pectoris - Benign paroxysmal vertigo, unspecified ear - Chronic obstructive pulmonary disease, unspecified - Dizziness and giddiness - Heart failure, unspecified - Hypertensive heart disease with heart failure - custodial (current) use of anticoagulants - Other alf (current) drug therapy - Presence of cardiac pacemaker - Unspecified atrial fibrillation 02/14/2025 19:12 [facility] [address] [place] JhonathanHemant [place] TYPE: Emergency COMPLAINT: - CHEST PAIN DIAGNOSES: - Benign paroxysmal vertigo, unspecified ear - Chronic obstructive pulmonary disease, unspecified - Dizziness and giddiness - Heart failure, unspecified - Hypertensive heart disease with heart failure - Other 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 - Unspecified atrial fibrillation 02/01/2025 15:18 [facility] [place] JhonathanHemant [place] TYPE: Emergency COMPLAINT: - SKIN ISSUE DIAGNOSES: - Heart failure, unspecified - Hypertensive heart disease with heart failure - Inflammatory disorders of scrotum - Local infection of the skin and subcutaneous tissue, unspecified - Other alf (current) drug therapy - Unspecified atrial fibrillation 12/31/2024 15:31 [facility] [address] An[facility] [place] TYPE: Emergency COMPLAINT: - GROIN PAIN DIAGNOSES: - Cellulitis of buttock - Cellulitis of corpus cavernosum and penis - Chronic obstructive pulmonary disease, unspecified - Heart failure, unspecified - Hypertensive heart disease with heart failure - Inflammatory disorders of scrotum - Other 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 - Other specified disorders of penis - Unspecified atrial fibrillation 12/30/2024 08:13 [facility] [place] TYPE: Emergency COMPLAINT: - URINARY PROBLEM DIAGNOSES: - Cellulitis of buttock - Cellulitis of corpus cavernosum and penis - Chronic obstructive pulmonary disease, unspecified - Heart failure, unspecified - Hypertensive heart disease with heart failure - Other 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 - Pelvic and perineal pain - Psoriasis vulgaris 08/14/2024 03:23 [facility] [place] TYPE: Emergency COMPLAINT: - DIFFICULTY BREATHING DIAGNOSES: - Atherosclerotic heart disease of [place] coronary artery without angina pectoris - Chronic obstructive pulmonary disease, unspecified - Heart failure, unspecified - Hypertensive heart disease with heart failure - custodial (current) use of anticoagulants - Other 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 - Personal history of malignant neoplasm of prostate - Presence of cardiac pacemaker - Shortness of breath - Unspecified atrial fibrillation 07/28/2024 09:10 [facility] [place] TYPE: Emergency COMPLAINT: - SHORTNESS OF BREATH DIAGNOSES: - Atherosclerotic heart disease of [place] coronary artery without angina pectoris - Chronic obstructive pulmonary disease, unspecified - Heart failure, unspecified - Hypertensive heart disease with heart failure - Personal history of malignant neoplasm of prostate - Presence of cardiac pacemaker - Shortness of breath - Unspecified atrial fibrillation INPATIENT VISIT TRACKING (12 MO.) No inpatient visits to display in this time frame [id number]
[2025-07-06 21:26] LABS: BASOPHILS 0.8 % (0.2-1.2); EOSINOPHILS 1.4 % (0.8-7.0); LYMPHOCYTES 18.3 % (21.8-53.1); MCH 32.4 PG (25.7-32.2); MCHC 33.7 g/dL (32.3-36.5); MCV 96.1 fL (79.0-92.2); MONOCYTES 9.8 % (5.3-12.2); NEUTROPHILS 69.3 % (34.0-67.9); RBC 5.10 M/uL (4.63-6.08)
[2025-07-06 21:38] LABS: INR 1.04 (0.80-1.30); PROTIME 12.9 Sec (11.2-14.2)
[2025-07-06 21:50] LABS: ALT (SGPT) 22.0 U/L (14-59); AST (SGOT) 18.0 U/L (15-37); GLOMERULAR FILTRATION RATE,EST 40.0 mL/min (>60); PROTEIN, TOTAL 6.9 g/dL (6.4-8.2); UREA NITROGEN 38.0 mg/dL (7-18)
[2025-07-06] MEDS ORDERED: FUROSEMIDE 100 MG/10 ML VIAL IV ONE (22:00)
[2025-07-06] MEDS ORDERED: METOLAZONE5 MG PO (23:12)
[2025-07-06 23:29] VITALS: BP 137/88
== END 2025-07-06 23:30 | disposition home or self-care (01) ==
LOC: ED 20:16
PROVIDERS: Family Medicine
DX: I11.0 Hypertensive heart disease with heart failure (principal); I50.9 Heart failure, unspecified; I48.91 Unspecified atrial fibrillation; J44.9 Chronic obstructive pulmonary disease, unspecified; Z79.899 Other long term (current) drug therapy
CPT/HCPCS: 36415; 71045; 80053; 83735; 83880; 84484; 85025; 85610; 93005; 93010; 96374; 99284-25; J1938